=== PATIENT | male | born 1960 | race Caucasian/White ===

== ENCOUNTER 2017-04-18 01:44 | Emergency (ER) | payer OTHER ==
[~2017-04-18] VITALS: Ht 188 cm; Wt 102.1 kg
[2017-04-18 01:45] VITALS: BP_SYST 147
[2017-04-18] MEDS ORDERED: TETRACAINE HCL 0.5% OPHTHALMIC DROPS 15 ML OP ONE (01:45)
[2017-04-18] MEDS ORDERED: BALANCED SALT IRRIG SOLN 15 ML IO ONE (01:45)
[2017-04-18] MEDS ORDERED: FLUORESCEIN SODIUM 1 MG OPHTHALMIC STRIP OP ONE (01:45)
[2017-04-18] MEDS ORDERED: DIPH-TET-PERTUS Vaccine 0.5 ML VIAL (ADACEL) I.M. ONE (02:15)
[2017-04-18] MEDS ORDERED: GENTAMICIN SULFATE 0.3% OPHT. 5 ML DROPS OP ONE (03:00)
[2017-04-18 03:30] VITALS: BP_SYST 124
== END 2017-04-18 03:30 | disposition home or self-care (01) ==
LOC: SED 01:44
DX: T15.02XA Foreign body in cornea, left eye, initial encounter (principal); H10.9 Unspecified conjunctivitis; H11.422 Conjunctival edema, left eye; X58.XXXA Exposure to other specified factors, initial encounter; Y93.89 Activity, other specified; Y92.89 Other specified places as the place of occurrence of the external cause; Y99.8 Other external cause status
CPT/HCPCS: 90715; 99283

== ENCOUNTER 2018-12-25 13:28 | Emergency (ER) | payer OTHER ==
[~2018-12-25] VITALS: Ht 188 cm; Wt 104.3 kg
[2018-12-25] MEDS ORDERED: NACL 0.9% 1,000 ML IV ONE (13:39)
[2018-12-25] MEDS ORDERED: ASPIRIN 81 MG TAB.CHEW PO ONE (13:45)
[2018-12-25 13:53] VITALS: BP_SYST 151
[2018-12-25 14:10] LABS: BASOPHILS # (AUTO) 0.1 K/uL (0.0-0.2); BASOPHILS % (AUTO) 1.1 % (0.0-2.0); EOSINOPHILS # (AUTO) 0.1 K/uL (0.0-0.4); EOSINOPHILS % (AUTO) 1.4 % (0.0-4.0); HEMATOCRIT 49.8 % (36-54); HEMOGLOBIN 16.6 g/dL (14.0-18.0); LYMPHOCYTES # (AUTO) 2.2 K/uL (1.0-5.5); LYMPHOCYTES % (AUTO) 22.4 % (20.5-51.5); MEAN CORPUSCULAR HEMOGLOBIN 28 pg (27-31); MEAN CORPUSCULAR HGB CONC 33 % (32-36); MEAN CORPUSCULAR VOLUME 84 fL (79.0-98.0); MONOCYTES # (AUTO) 0.5 K/uL (0.0-1.0); MONOCYTES % (AUTO) 5.1 % (1.7-9.3); NEUTROPHILS # (AUTO) 6.9 K/uL (1.8-7.7); PLATELET COUNT (AUTO) 200 K/uL (130-430); RED BLOOD CELL COUNT(AUTO) 5.94 MIL/uL (4.2-6.2); RED CELL DISTRIBUTION WIDTH 14.2 % (9.0-15.0); WHITE BLOOD COUNT (AUTO) 9.8 K/uL (4.8-10.8)
[2018-12-25 14:35] LABS: ALBUMIN 3.2 g/dL (3.4-4.8); CALCIUM 9.7 mg/dL (8.4-11.0); CREATININE 1.47 mg/dL (0.55-1.30); INR 0.9 (0.80-1.20); PROTHROMBIN TIME 9.4 SECS (9.5-12.5); TOTAL BILIRUBIN 1.1 mg/dL (0.0-1.0)
[2018-12-25] MEDS ORDERED: NACL 0.9% 2,000 ML IV ONE (14:45)
[2018-12-25] MEDS ORDERED: INSULIN REGULAR, HUMAN 10 UNITS/0.1 ML INJ IVP ONE (14:45)
[2018-12-25 18:10] VITALS: BP_SYST 148
== END 2018-12-25 18:10 | disposition left against medical advice (07) ==
LOC: SED 13:28
DX: I24.9 Acute ischemic heart disease, unspecified (principal); E11.65 Type 2 diabetes mellitus with hyperglycemia; R07.89 Other chest pain; I10 Essential (primary) hypertension
CPT/HCPCS: 36415; 71045; 80053; 82150; 82550; 83605; 83690; 83880; 84484; 85025; 85610; 85730; 87040; 93005; 96361; 96374; 99284; J1815; J7030

== ENCOUNTER 2019-08-09 11:48 | Emergency (ER) | payer OTHER ==
[~2019-08-09] VITALS: Ht 188 cm; Wt 83.9 kg
[2019-08-09 11:59] VITALS: BP_SYST 150
--- NOTE | 2019-08-09 12:06 | NUR ---
PATIENT PRESENTS TO THE ER WITH HX OF FRONTAL HEADACHE FOR TWO DAYS; SEEN AT [facility] AND RELEASED; PATIENT REQUESTS REEVALUATION FOR SECOND OPINION; NO TRAUMA, NO OTHER REMARKABLE S/S
--- NOTE | 2019-08-09 12:20 | NUR ---
[facility]
[2019-08-09 14:03] LABS: BASOPHILS # (AUTO) 0.1 K/uL (0.0-0.2); BASOPHILS % (AUTO) 0.9 % (0.0-2.0); EOSINOPHILS # (AUTO) 0.1 K/uL (0.0-0.4); EOSINOPHILS % (AUTO) 1.2 % (0.0-4.0); HEMATOCRIT 47.4 % (36-54); HEMOGLOBIN 15.5 g/dL (14.0-18.0); LYMPHOCYTES # (AUTO) 1.4 K/uL (1.0-5.5); LYMPHOCYTES % (AUTO) 17.8 % (20.5-51.5); MEAN CORPUSCULAR HEMOGLOBIN 27 pg (27-31); MEAN CORPUSCULAR HGB CONC 33 % (32-36); MEAN CORPUSCULAR VOLUME 83 fL (79.0-98.0); MONOCYTES # (AUTO) 0.5 K/uL (0.0-1.0); MONOCYTES % (AUTO) 5.8 % (1.7-9.3); NEUTROPHILS % (AUTO) 74.3 % (40.0-70.0); PLATELET COUNT (AUTO) 162 K/uL (130-430); RED BLOOD CELL COUNT(AUTO) 5.69 MIL/uL (4.2-6.2); RED CELL DISTRIBUTION WIDTH 13.9 % (9.0-15.0); WHITE BLOOD COUNT (AUTO) 8.1 K/uL (4.8-10.8)
[2019-08-09 14:15] LABS: BILIRUBIN,URINE NEGATIVE (NEGATIVE); BLOOD, URINE NEGATIVE (NEGATIVE); CLARITY/URINE CLEAR (CLEAR); COLOR,URINE YELLOW (YELLOW); GLUCOSE,URINE 3+ (NEGATIVE); KETONES,URINE NEGATIVE (NEGATIVE); LEUKOCYTE ESTERASE ,URINE NEGATIVE (NEGATIVE); NITRITE, URINE NEGATIVE (NEGATIVE); PH,URINE 6.5 (5.0-8.0); PROTEIN URINE 2+ (NEGATIVE); UROBILINOGEN,URINE 0.2 (0.2-1.0)
--- NOTE | 2019-08-09 14:15 | NUR ---
REASSESSMENT; PATIENT STATES HIS SYMPTOMS ARE RESOLVED; DISPOSITION PENDING
[2019-08-09 14:25] LABS: BACTERIA,URINE FEW /HPF (None Seen); RBC,URINE 0-3 /HPF (0-3); WBC,URINE 0-3 /HPF (0-3)
[2019-08-09 14:27] LABS: BARBITURATE, URINE NEGATIVE (NEG <=200)
[2019-08-09 14:28] LABS: BENZODIAZEPINE, URINE NEGATIVE (NEG <=150); CANNABINOID, URINE POSITIVE (NEG <=50); COCAINE, URINE NEGATIVE (NEG <=150); METHAMPHETAMINES SCREEN,URINE POSITIVE (NEG <=500); OPIATE, URINE NEGATIVE (NEG <=100); PHENCYCLIDINE SCREEN,URINE NEGATIVE (NEG <=25); UR TRICYCLIC ANTIDEPRESSANTS NEGATIVE (NEG <=300); URINE AMPHETAMINE POSITIVE (NEG <=500); URINE METHADONE NEGATIVE (NEG <=200); URINE OXYCODONE SCREEN NEGATIVE (NEG <=100); URINE PROPOXYPHENE SCREEN NEGATIVE (NEG <=300)
[2019-08-09 14:31] LABS: ANION GAP 10 (5-15); CHLORIDE 95 mmol/L (98-107); CREATININE 1.52 mg/dL (0.55-1.30); POTASSIUM 4.3 mmol/L (3.5-5.1); SODIUM SERUM 129 mmol/L (136-145); UREA NITROGEN, BLOOD 27 mg/dL (8-21)
[2019-08-09 14:32] LABS: ALANINE AMINOTRANSFERASE 28 U/L (12-78); ALBUMIN 3.3 g/dL (3.4-4.8); ASPARTATE AMINOTRANSFERASE 18 U/L (10-37); TOTAL BILIRUBIN 1.1 mg/dL (0.0-1.0)
[2019-08-09 14:34] LABS: GFR AFRICAN AMERICAN 61 mL/min (>90)
[2019-08-09 14:35] LABS: ALCOHOL, BLOOD < 3 mg/dL (<10)
[2019-08-09 14:36] LABS: GLUCOSE 622 mg/dL (70-99)
[2019-08-09] MEDS ORDERED: NACL 0.9% 1,000 ML IV ONE (15:00)
[2019-08-09] MEDS ORDERED: INSULIN REGULAR, HUMAN 10 UNITS/0.1 ML INJ IVP ONE (15:00)
--- NOTE | 2019-08-09 17:30 | NUR ---
REASSESSMENT BY ERMD; PATIENT STATES HIS SYMPTOMS ARE RESOLVED; PREPARATIONS TO DISCHARGE
[2019-08-09 17:54] VITALS: BP_SYST 141
--- NOTE | 2019-08-09 17:56 | NUR ---
REASSESSMENT BY ERMD; ACI GIVEN AND PATIENT INDICATED FULL UNDERSTANDING; IV OUT AND DRESSED AND PATIENT DISCHARGED WITH MOTHER, AMBULATORY WITH CANE/ IMPROVED
== END 2019-08-09 17:56 | disposition home or self-care (01) ==
LOC: SED 11:48
DX: E11.9 Type 2 diabetes mellitus without complications (principal); R51 Headache; R42 Dizziness and giddiness; I10 Essential (primary) hypertension
CPT/HCPCS: 36415; 70450; 80053; 80307; 81000; 82962; 85025; 96361; 96374; 99284; G0482; J7030; J1815

== ENCOUNTER 2023-01-26 08:08 | Emergency (ER) | payer OTHER, MEDICAID ==
[~2023-01-26] VITALS: Ht 188 cm; Wt 86.2 kg
[2023-01-26 08:15] VITALS: BP_SYST 186; PULSE 101; RESP 20; TEMP 96.8; O2SAT 100
[2023-01-26] MEDS ORDERED: cloNIDine HCL 0.1 MG TABLET PO ONE (08:45)
[2023-01-26] MEDS ORDERED: ceFAZolin SODIUM 2 GM VIAL IM ONE (08:45)
[2023-01-26] MEDS ORDERED: LISI10TA29 PO (08:52)
[2023-01-26] MEDS ORDERED: CLIN-142 PO (08:52)
[2023-01-26] MEDS ORDERED: cloNIDine HCL 0.1 MG TABLET ONE (08:56)
[2023-01-26 10:24] VITALS: BP_SYST 160; PULSE 88; RESP 16; TEMP 96.8; O2SAT 97
== END 2023-01-26 10:25 | disposition home or self-care (01) ==
LOC: SED 08:08
DX: L03.116 Cellulitis of left lower limb (principal); L03.115 Cellulitis of right lower limb; I87.8 Other specified disorders of veins; I10 Essential (primary) hypertension; Z79.899 Other long term (current) drug therapy
CPT/HCPCS: 82962; 96372; 99283

== ENCOUNTER 2023-01-31 22:15 | Emergency (ER) | payer OTHER, MEDICAID ==
[~2023-01-31] VITALS: Ht 188 cm; Wt 86.2 kg
[~2023-01-31 22:15] MED LIST: CLIN-142 PO; LISI10TA29 PO
[2023-01-31 22:34] VITALS: BP_SYST 134; PULSE 86; RESP 18; TEMP 98.3; O2SAT 98
== END 2023-01-31 23:50 | disposition left against medical advice (07) ==
LOC: SED 22:15
DX: S01.511D Laceration without foreign body of lip, subsequent encounter (principal); Z53.21 Procedure and treatment not carried out due to patient leaving prior to being seen by health care provider; X58.XXXD Exposure to other specified factors, subsequent encounter
CPT/HCPCS: 99281

== ENCOUNTER 2023-03-23 14:06 | Emergency (ER) | payer MEDICAID, OTHER ==
[~2023-03-23] VITALS: Ht 177.8 cm; Wt 85.7 kg
[~2023-03-23 14:06] MED LIST changes: +ALBMDI INH; +CLIN-22 PO; +LEVO-62 PO
[2023-03-23 14:15] VITALS: BP_SYST 149; PULSE 94; RESP 20; TEMP 98; O2SAT 99
[2023-03-23 15:21] LABS: BASOPHILS # (AUTO) 0.1 K/uL (0.0-0.2); BASOPHILS % (AUTO) 1.1 % (0.0-2.0); EOSINOPHILS # (AUTO) 0.2 K/uL (0.0-0.4); EOSINOPHILS % (AUTO) 2.6 % (0.0-4.0); HEMATOCRIT 29.4 % (36-54); HEMOGLOBIN 9.5 g/dL (14.0-18.0); LYMPHOCYTES # (AUTO) 1.2 K/uL (1.0-5.5); LYMPHOCYTES % (AUTO) 13.6 % (20.5-51.5); MEAN CORPUSCULAR HEMOGLOBIN 26 pg (27-31); MEAN CORPUSCULAR HGB CONC 32 % (32-36); MEAN CORPUSCULAR VOLUME 79 fL (79.0-98.0); MONOCYTES # (AUTO) 0.8 K/uL (0.0-1.0); MONOCYTES % (AUTO) 8.5 % (1.7-9.3); NEUTROPHILS # (AUTO) 6.6 K/uL (1.8-7.7); NEUTROPHILS % (AUTO) 74.2 % (40.0-70.0); PLATELET COUNT (AUTO) 240 K/uL (130-430); RED CELL DISTRIBUTION WIDTH 14.6 % (9.0-15.0); WHITE BLOOD COUNT (AUTO) 8.9 K/uL (4.8-10.8)
[2023-03-23 15:36] LABS: CREATININE 2.59 mg/dL (0.55-1.30); POTASSIUM 4.7 mmol/L (3.5-5.1)
[2023-03-23 15:40] LABS: ALBUMIN 3.1 g/dL (3.4-4.8); TOTAL BILIRUBIN 1.5 mg/dL (0.0-1.0); TOTAL PROTEIN, SERUM 7.1 g/dL (6.4-8.3)
[2023-03-23 18:38] VITALS: BP_SYST 149; PULSE 94; RESP 20; TEMP 98; O2SAT 99
== END 2023-03-23 18:38 | disposition left against medical advice (07) ==
LOC: SED 14:06
DX: J18.9 Pneumonia, unspecified organism (principal); J90 Pleural effusion, not elsewhere classified; I12.9 Hypertensive chronic kidney disease with stage 1 through stage 4 chronic kidney disease, or unspecified chronic kidney disease; E11.22 Type 2 diabetes mellitus with diabetic chronic kidney disease; N18.9 Chronic kidney disease, unspecified; D64.9 Anemia, unspecified; Z79.899 Other long term (current) drug therapy
CPT/HCPCS: 36415; 71046-TC; 80053; 85025; 99284

== ENCOUNTER 2023-04-09 11:54 | Emergency (ER) | payer MEDICAID, OTHER ==
[~2023-04-09] VITALS: Ht 188 cm; Wt 86.2 kg
[2023-04-09 12:16] VITALS: BP_SYST 133; PULSE 94; RESP 16; TEMP 97.7; O2SAT 94
[2023-04-09 13:58] LABS: BASOPHILS # (AUTO) 0.1 K/uL (0.0-0.2); BASOPHILS % (AUTO) 1.1 % (0.0-2.0); EOSINOPHILS # (AUTO) 0.2 K/uL (0.0-0.4); EOSINOPHILS % (AUTO) 2.5 % (0.0-4.0); HEMATOCRIT 25.8 % (36-54); HEMOGLOBIN 8.2 g/dL (14.0-18.0); LYMPHOCYTES % (AUTO) 13.5 % (20.5-51.5); MEAN CORPUSCULAR HEMOGLOBIN 25 pg (27-31); MEAN CORPUSCULAR HGB CONC 32 % (32-36); MEAN CORPUSCULAR VOLUME 77 fL (79.0-98.0); MONOCYTES # (AUTO) 0.6 K/uL (0.0-1.0); MONOCYTES % (AUTO) 7.9 % (1.7-9.3); NEUTROPHILS # (AUTO) 5.3 K/uL (1.8-7.7); PLATELET COUNT (AUTO) 234 K/uL (130-430); RED BLOOD CELL COUNT(AUTO) 3.34 MIL/uL (4.2-6.2); RED CELL DISTRIBUTION WIDTH 15.2 % (9.0-15.0); WHITE BLOOD COUNT (AUTO) 7.1 K/uL (4.8-10.8)
[2023-04-09 14:14] LABS: INR 1.1 (0.80-1.20)
[2023-04-09 14:20] LABS: ANION GAP 11 (5-15); CARBON DIOXIDE 21 mmol/L (23-29); CHLORIDE 105 mmol/L (98-107); GFR AFRICAN AMERICAN 31 mL/min (>90); GFR NON AFRICAN-AMERICAN 26 mL/min (>90); GLUCOSE 120 mg/dL (74-106); POTASSIUM 4.1 mmol/L (3.5-5.1); SODIUM SERUM 137 mmol/L (136-145); UREA NITROGEN, BLOOD 35 mg/dL (8-21)
[2023-04-09 14:56] LABS: ALANINE AMINOTRANSFERASE 15 U/L (12-78); ASPARTATE AMINOTRANSFERASE 15 U/L (10-37); TOTAL BILIRUBIN 1.1 mg/dL (0.0-1.0); TOTAL PROTEIN, SERUM 6.8 g/dL (6.4-8.3)
== END 2023-04-09 14:11 | disposition left against medical advice (07) ==
LOC: SED 11:54
DX: R06.02 Shortness of breath (principal); R22.43 Localized swelling, mass and lump, lower limb, bilateral; Z53.21 Procedure and treatment not carried out due to patient leaving prior to being seen by health care provider
CPT/HCPCS: 36415; 71045; 80053; 83605; 83880; 84484; 85025; 85610-TC; 85730-TC; 93005; 99281

== ENCOUNTER 2023-08-07 14:11 | Inpatient (IN) | payer MEDICAID, OTHER ==
[~2023-08-07] VITALS: Ht 188 cm; Wt 92.1 kg
[2023-08-07 14:15] VITALS: BP_SYST 171; PULSE 107; RESP 24; TEMP 97.8; O2SAT 96
[2023-08-07] MEDS ORDERED: IPRATROPIUM/ALBUTEROL SULFATE 3 ML AMPUL.NEB (DUONEB) ONE (14:20)
[2023-08-07 14:29] LABS: ABG O2 SAT% ESTIMATE 95.8 % (94.0-100.0); BLOOD GAS BASE EXCESS -2.6 mmol/L (-3.0-3.0); BLOOD GAS HCO3 21.5 mmol/L (21.0-27.0); BLOOD GAS PCO2 35.5 mmHg (32.0-45.0); BLOOD GAS PO2 79.2 mmHg (75.0-100.0)
[2023-08-07 14:33] LABS: ALLEN'S TEST POSITIVE (P)
[2023-08-07] MEDS: IPRATROPIUM/ALBUTEROL SULFATE 3 ML AMPUL.NEB (DUONEB) INH ONE (14:34)
[2023-08-07] MEDS: DEXAMETHASONE SOD PHOSPHATE 10 MG/ML VIAL IVP ONE (14:40)
[2023-08-07] MEDS: guaiFENesin/DEXTROMETHORPHAN 10 ML UDC PO ONE (14:40)
[2023-08-07 14:50] LABS: ANION GAP 11 (5-15); CALCIUM 8.6 mg/dL (8.4-11.0); CARBON DIOXIDE 24 mmol/L (23-29); CHLORIDE 106 mmol/L (98-107); CREATININE 2.75 mg/dL (0.55-1.30); GFR AFRICAN AMERICAN 30 mL/min (>90); GLUCOSE 185 mg/dL (74-106); POTASSIUM 4.2 mmol/L (3.5-5.1); SODIUM SERUM 141 mmol/L (136-145); UREA NITROGEN, BLOOD 31 mg/dL (8-21)
[2023-08-07 14:53] LABS: GFR NON AFRICAN-AMERICAN 25 mL/min (>90)
[2023-08-07 14:55] LABS: BASOPHILS # (AUTO) 0.1 K/uL (0.0-0.2); BASOPHILS % (AUTO) 0.8 % (0.0-2.0); EOSINOPHILS # (AUTO) 0.2 K/uL (0.0-0.4); EOSINOPHILS % (AUTO) 1.8 % (0.0-4.0); HEMATOCRIT 23.9 % (36-54); LYMPHOCYTES % (AUTO) 11.6 % (20.5-51.5); MEAN CORPUSCULAR HEMOGLOBIN 22 pg (27-31); MEAN CORPUSCULAR HGB CONC 32 % (32-36); MEAN CORPUSCULAR VOLUME 67 fL (79.0-98.0); MONOCYTES # (AUTO) 0.5 K/uL (0.0-1.0); MONOCYTES % (AUTO) 6.1 % (1.7-9.3); NEUTROPHILS # (AUTO) 7.1 K/uL (1.8-7.7); NEUTROPHILS % (AUTO) 79.7 % (40.0-70.0); PLATELET COUNT (AUTO) 287 K/uL (130-430); RED BLOOD CELL COUNT(AUTO) 3.57 MIL/uL (4.2-6.2); RED CELL DISTRIBUTION WIDTH 18.7 % (9.0-15.0); WHITE BLOOD COUNT (AUTO) 8.9 K/uL (4.8-10.8)
[2023-08-07 14:57] LABS: ALANINE AMINOTRANSFERASE 13 U/L (12-78); ALBUMIN 2.2 g/dL (3.4-4.8); ASPARTATE AMINOTRANSFERASE 12 U/L (10-37); BILIRUBIN,DIRECT 0.2 mg/dL (0.0-0.3); TOTAL BILIRUBIN 0.8 mg/dL (0.0-1.0); TOTAL PROTEIN, SERUM 6.9 g/dL (6.4-8.3)
[2023-08-07 14:59] LABS: INR 1.1 (0.80-1.20); PROTHROMBIN TIME 10.9 SECS (9.5-12.5)
[2023-08-07 15:00] LABS: HEMOGLOBIN 7.8 g/dL (14.0-18.0)
[2023-08-07 15:14] LABS: ANISOCYTOSIS 1+; OVALOCYTES FEW
[2023-08-07] MEDS: DIPHENHYDRAMINE INJ 50 MG/ML VIAL IVP ONE (15:15)
[2023-08-07] MEDS: FUROSEMIDE 40 MG/4 ML VIAL IVP ONE (15:58)
[2023-08-07] MEDS: AZITHROMYCIN 500 MG in NS 250 ML IV ONE (16:34)
[2023-08-07] MEDS: ENOXAPARIN SODIUM 80 MG/0.8 ML SYRINGE SUBCUT ONE (16:34)
[2023-08-07] MEDS ORDERED: AZITHROMYCIN 500 MG/VIAL (ZITHROMAX) IV ONE (16:35)
[2023-08-07] MEDS: DILTIAZEM HCL 120 MG CAP.SR.24H PO ONE (16:54)
[2023-08-07] MEDS ORDERED: ACETAMINOPHEN 325 MG TABLET PO PRN (17:15)
[2023-08-07] MEDS ORDERED: DEXTROSE 50% JECT 50 ML DISP.SYRIN IVP PRN (17:15)
[2023-08-07] MEDS ORDERED: ONDANSETRON HCL 4 MG/2 ML VIAL IVP PRN (17:15)
[2023-08-07] MEDS ORDERED: MUPIROCIN 2% TOPICAL OINTMENT 22 GM NS PRN (17:15)
[2023-08-07] MEDS ORDERED: POTASSIUM CHLORIDE 20 MEQ TABLET.ER PO PRN (17:15)
[2023-08-07] MEDS ORDERED: DOCUSATE SODIUM 100 MG CAPSULE PO PRN (17:15)
[2023-08-07] MEDS ORDERED: MAGNESIUM SULFATE 50 ML IV PRN (17:15)
[2023-08-07] MEDS ORDERED: LORazepam 2 MG/ML VIAL IVP PRN (17:15)
[2023-08-07] MEDS ORDERED: MORPHINE 2 MG/ML INJ. SYRINGE IVP PRN ×2 (17:15)
[2023-08-07 17:24] VITALS: PULSE 110; O2SAT 96
[2023-08-07] MEDS: cefTRIAXone 1 GM in D5W 50 ML IV ONE (17:55)
[2023-08-07] MEDS ORDERED: cefTRIAXone 1 GM VIAL ONE (17:57)
[2023-08-07] MEDS ORDERED: INSULIN Lispro 100 UNITS/ML, 3 ML VIAL (humaLOG) ONE (20:01)
[2023-08-07] MEDS: INSULIN LISPRO SLIDING SCALE 100 UNITS/ML, 3 ML VIAL (humaLOG) SUBCUT PRN (20:01)
[2023-08-07] MEDS: cefTRIAXone 1 GM IVPB PREMIX 50 ML IV SCH (21:58)
[2023-08-07] MEDS: AZITHROMYCIN 500 MG in NS 250 ML IV SCH (21:58)
[2023-08-07 23:29] VITALS: BP_SYST 156; PULSE 92; RESP 20; TEMP 98.4; O2SAT 96
[2023-08-07 23:33] VITALS: O2SAT 99
[2023-08-07] MEDS: ALBUTEROL SULFATE 0.083% 2.5 MG/3 ML VIAL.NEB INH PRN (23:33)
[2023-08-07 23:36] VITALS: O2SAT 99
[2023-08-08] VITALS (9 sets, daily range): BP systolic 113–156; PULSE 79–101; RESP 16–20; TEMP 98.4–98.5; O2SAT 93–100
[2023-08-08 07:09] LABS: BASOPHILS % (AUTO) 0.2 % (0.0-2.0); HEMATOCRIT 25.2 % (36-54); LYMPHOCYTES # (AUTO) 0.4 K/uL (1.0-5.5); LYMPHOCYTES % (AUTO) 4.4 % (20.5-51.5); MEAN CORPUSCULAR HEMOGLOBIN 21 pg (27-31); MEAN CORPUSCULAR HGB CONC 32 % (32-36); MEAN CORPUSCULAR VOLUME 67 fL (79.0-98.0); MONOCYTES # (AUTO) 0.3 K/uL (0.0-1.0); NEUTROPHILS # (AUTO) 9.1 K/uL (1.8-7.7); NEUTROPHILS % (AUTO) 92.4 % (40.0-70.0); PLATELET COUNT (AUTO) 262 K/uL (130-430); RED BLOOD CELL COUNT(AUTO) 3.76 MIL/uL (4.2-6.2); RED CELL DISTRIBUTION WIDTH 18.9 % (9.0-15.0); WHITE BLOOD COUNT (AUTO) 9.8 K/uL (4.8-10.8)
[2023-08-08 07:23] LABS: CALCIUM 9.1 mg/dL (8.4-11.0); POTASSIUM 4.7 mmol/L (3.5-5.1)
[2023-08-08 07:24] LABS: CREATININE 2.83 mg/dL (0.55-1.30)
[2023-08-08] MEDS: FUROSEMIDE 40 MG/4 ML VIAL IVP SCH (08:39)
[2023-08-08] MEDS: METOPROLOL SUCCINATE 25 MG TAB.SR.24H (TOPROL XL) PO SCH (08:39)
[2023-08-08] MEDS: ASPIRIN 81 MG TAB.CHEW PO SCH (08:39)
[2023-08-08] MEDS: cefTRIAXone 1 GM IVPB PREMIX 50 ML IV SCH (08:40)
[2023-08-08] MEDS: AZITHROMYCIN 500 MG in NS 250 ML IV SCH (09:30)
[2023-08-08 10:08] LABS: BILIRUBIN,URINE NEGATIVE (NEGATIVE); BLOOD, URINE 2+ (NEGATIVE); CLARITY/URINE CLEAR (CLEAR); COLOR,URINE YELLOW (YELLOW); GLUCOSE,URINE TRACE (NEGATIVE); KETONES,URINE NEGATIVE (NEGATIVE); LEUKOCYTE ESTERASE ,URINE NEGATIVE (NEGATIVE); NITRITE, URINE NEGATIVE (NEGATIVE); PROTEIN URINE 3+ (NEGATIVE); UROBILINOGEN,URINE 0.2 (0.2-1.0)
[2023-08-08 10:46] LABS: BARBITURATE, URINE NEGATIVE (NEG <=200); URINE AMPHETAMINE POSITIVE (NEG <=500)
[2023-08-08 10:47] LABS: BENZODIAZEPINE, URINE NEGATIVE (NEG <=150); CANNABINOID, URINE POSITIVE (NEG <=50); COCAINE, URINE NEGATIVE (NEG <=150); METHAMPHETAMINES SCREEN,URINE POSITIVE (NEG <=500); PHENCYCLIDINE SCREEN,URINE NEGATIVE (NEG <=25); URINE METHADONE NEGATIVE (NEG <=200)
[2023-08-08 10:48] LABS: OPIATE, URINE NEGATIVE (NEG <=100); UR TRICYCLIC ANTIDEPRESSANTS NEGATIVE (NEG <=300); URINE OXYCODONE SCREEN NEGATIVE (NEG <=100)
[2023-08-08 11:20] LABS: BACTERIA,URINE FEW /HPF (None Seen); WBC,URINE 0-3 /HPF (0-3)
[2023-08-08 15:04] LABS: TOTAL IRON BIND. CAPACITY 224 ug/dL (250-450)
[2023-08-08] MEDS: INSULIN GLARGINE 100 UNITS/ML, 10 ML VIAL SUBCUT SCH (21:22)
[2023-08-09] VITALS: BP_SYST 138; PULSE 87; RESP 20; TEMP 98.4; O2SAT 96
[2023-08-09 06:23] LABS: BASOPHILS # (AUTO) 0.1 K/uL (0.0-0.2); BASOPHILS % (AUTO) 0.4 % (0.0-2.0); EOSINOPHILS % (AUTO) 0.1 % (0.0-4.0); HEMATOCRIT 27.8 % (36-54); HEMOGLOBIN 8.6 g/dL (14.0-18.0); LYMPHOCYTES # (AUTO) 1.7 K/uL (1.0-5.5); LYMPHOCYTES % (AUTO) 8.5 % (20.5-51.5); MEAN CORPUSCULAR HEMOGLOBIN 21 pg (27-31); MEAN CORPUSCULAR HGB CONC 31 % (32-36); MEAN CORPUSCULAR VOLUME 69 fL (79.0-98.0); MONOCYTES # (AUTO) 1.2 K/uL (0.0-1.0); NEUTROPHILS # (AUTO) 17.2 K/uL (1.8-7.7); PLATELET COUNT (AUTO) 378 K/uL (130-430); RED BLOOD CELL COUNT(AUTO) 4.04 MIL/uL (4.2-6.2); WHITE BLOOD COUNT (AUTO) 20.3 K/uL (4.8-10.8)
[2023-08-09 07:05] LABS: ALBUMIN 2.5 g/dL (3.4-4.8); CALCIUM 9.5 mg/dL (8.4-11.0); CREATININE 3.02 mg/dL (0.55-1.30); POTASSIUM 4.4 mmol/L (3.5-5.1); THYROID STIMULATING HORMONE 1.92 uIu/mL (0.34-4.82); TOTAL BILIRUBIN 0.5 mg/dL (0.0-1.0); TOTAL PROTEIN, SERUM 7.7 g/dL (6.4-8.3)
[2023-08-09 08:00] VITALS: BP_SYST 145; PULSE 97; RESP 16; TEMP 98.1; O2SAT 94; O2SAT 97
[2023-08-09 08:27] LABS: INR 1.1 (0.80-1.20); PROTHROMBIN TIME 11.1 SECS (9.5-12.5)
[2023-08-09] MEDS: ASPIRIN 81 MG TAB.CHEW PO SCH (09:54)
[2023-08-09] MEDS ORDERED: AZITHROMYCIN 250 MG TABLET PO ONE (10:00)
[2023-08-09 10:45] LABS: BASOPHILS # (AUTO) 0.1 K/uL (0.0-0.2); BASOPHILS % (AUTO) 0.5 % (0.0-2.0); EOSINOPHILS % (AUTO) 0.3 % (0.0-4.0); HEMATOCRIT 24.3 % (36-54); HEMOGLOBIN 7.7 g/dL (14.0-18.0); LYMPHOCYTES # (AUTO) 1.8 K/uL (1.0-5.5); LYMPHOCYTES % (AUTO) 11.8 % (20.5-51.5); MEAN CORPUSCULAR HEMOGLOBIN 21 pg (27-31); MEAN CORPUSCULAR HGB CONC 32 % (32-36); MEAN CORPUSCULAR VOLUME 67 fL (79.0-98.0); MONOCYTES # (AUTO) 0.9 K/uL (0.0-1.0); MONOCYTES % (AUTO) 6.1 % (1.7-9.3); NEUTROPHILS # (AUTO) 12.3 K/uL (1.8-7.7); NEUTROPHILS % (AUTO) 81.3 % (40.0-70.0); PLATELET COUNT (AUTO) 289 K/uL (130-430); RED BLOOD CELL COUNT(AUTO) 3.62 MIL/uL (4.2-6.2); WHITE BLOOD COUNT (AUTO) 15.1 K/uL (4.8-10.8)
[2023-08-09 10:54] LABS: RED CELL DISTRIBUTION WIDTH 18.9 % (9.0-15.0)
[2023-08-09 11:10] VITALS: O2SAT 89
[2023-08-09] MEDS ORDERED: SULF1TAB48 PO (11:45)
[2023-08-09 13:00] VITALS: BP_SYST 151; PULSE 98; RESP 18; TEMP 96.9; O2SAT 98
[2023-08-09] MEDS: VANCOMYCIN HCL 1,500 MG in NS 250 ML IV ONE (13:17)
[2023-08-09 15:50] VITALS: BP_SYST 149; PULSE 78; RESP 18; TEMP 97.1; O2SAT 95
[2023-08-10] MEDS ORDERED: AZITHROMYCIN 250 MG TABLET PO SCH (09:00)
== END 2023-08-09 16:00 | disposition home or self-care (01) | DRG 133 ==
LOC: SED 14:11 → STU 17:01 → SMU 08-09 10:21
PROVIDERS: ADMIT Family Medicine; ATTEND Family Medicine
DX: J96.01 Acute respiratory failure with hypoxia (principal); N17.0 Acute kidney failure with tubular necrosis; I50.43 Acute on chronic combined systolic (congestive) and diastolic (congestive) heart failure; J18.9 Pneumonia, unspecified organism; D63.8 Anemia in other chronic diseases classified elsewhere; I13.0 Hypertensive heart and chronic kidney disease with heart failure and stage 1 through stage 4 chronic kidney disease, or unspecified chronic kidney disease; E11.22 Type 2 diabetes mellitus with diabetic chronic kidney disease; E86.0 Dehydration; K74.60 Unspecified cirrhosis of liver; I25.5 Ischemic cardiomyopathy; I25.10 Atherosclerotic heart disease of native coronary artery without angina pectoris; N18.4 Chronic kidney disease, stage 4 (severe); F10.20 Alcohol dependence, uncomplicated; F15.20 Other stimulant dependence, uncomplicated; I48.91 Unspecified atrial fibrillation; Z59.00 Homelessness unspecified; Z79.899 Other long term (current) drug therapy; Z87.891 Personal history of nicotine dependence; Z85.72 Personal history of non-Hodgkin lymphomas; Z87.01 Personal history of pneumonia (recurrent)
CPT/HCPCS: 36415; 36600; 71045; 71250-TC; 76604; 76770; 78579; 78580; 80048; 80053; 80076; 80307; 81000; 81001; 81015; 82803; 82948; 83037; 83540; 83550; 83605; 83735; 83880; 84443; 84484; 85025; 85379; 85610; 85730; 87040; 87086; 93005; 93306; 94640; 94760; 96374; 99291; A9539; A9540; G0378; J0456; J0696; J1100; J1650; J1815; J1940; J3370; J7050